=== PATIENT | male | born 1960 | race Caucasian/White ===

== ENCOUNTER → 2016-08-13 | Outpatient (CLI) | payer MEDICARE, BC ==
[~2016-08-13] MED LIST: ACTOS15 MG PO; ADVAIR HFA120 INHALA IH; AFRIN,GENASAL D15 ML BOTH NARES; ANTIVERT25 MG PO; ASPIRIN E.C.81 M1 PO; B COMPLETE1 EACH PO; BENZONATATE100 MG PO; COZAAR50 MG PO; CYANOCOBAL1000 MCG/2 IM; GLUCOPHAGE500 MG PO; IBUPROFEN800 MG PO; LANTUS 10100 UNITS/ SC; LANTUS 3 M100 UNITS/ SC; LANTUS 3 M100 UNITS1 SC; LOMOTIL,LONO1 TABLET PO; LYRICA150 MG PO; MECLIZINE HCL25 MG PO; NOVOLOG 10100 UNITS/ SC; NOVOLOG PE100 UNITS/ SC; PRAVACHOL40 MG PO; PRILOSEC40 MG PO; Prilosec PO; ST. JOSEPH ASPI81 MG PO; TRAMADOL HCL50 MG PO; Tessalon Perle PO; VENTOLIN HFA18 GM IH; WELCHOL625 MG PO
== END | disposition home or self-care (01) ==
LOC: CDC 14:30
DX: R94.31 Abnormal electrocardiogram [ECG] [EKG] (principal); K42.9 Umbilical hernia without obstruction or gangrene
CPT/HCPCS: 93000

== ENCOUNTER 2016-08-27 06:37 | Day surgery (SDC) | payer OTHER, BC ==
[~2016-08-27] VITALS: Ht 170.2 cm; Wt 114.3 kg
[~2016-08-27 06:37] MED LIST changes: +LOSARTAN POTASS50 MG PO; +METFORMIN HCL500 MG PO; +MOTRIN800 MG PO; +OMEPRAZOLE40 M1 PO; +TESSALON200 MG PO; +TRESIBA FL100 UNIT/1 SC; +ULTRAM50 MG PO
[2016-08-27 07:34] VITALS: BP 142/72
[2016-08-27 07:48] LABS: POINT-OF-CARE METER ID UU14174212
[2016-08-27] MEDS ORDERED: TRAMADOL HCL50 MG PO (09:35)
[2016-08-27 10:00] LABS: POINT-OF-CARE METER ID UU13113675; POINT-OF-CARE USER ID 515036437
[2016-08-27 11:00] VITALS: BP 124/71
[2016-08-27 12:33] VITALS: BP 127/68
== END 2016-08-27 13:45 | disposition home or self-care (01) ==
LOC: SDC 06:37
PROVIDERS: Surgery
PROC: 0WUF4JZ Supplement Abdominal Wall with Synthetic Substitute, Percutaneous Endoscopic Approach (ICD-10-PCS; principal; 2016-08-27)
DX: K42.0 Umbilical hernia with obstruction, without gangrene (principal); J45.909 Unspecified asthma, uncomplicated; I10 Essential (primary) hypertension; E11.42 Type 2 diabetes mellitus with diabetic polyneuropathy; E78.5 Hyperlipidemia, unspecified; K21.9 Gastro-esophageal reflux disease without esophagitis; E66.09 Other obesity due to excess calories; Z68.38 Body mass index [BMI] 38.0-38.9, adult; Z87.891 Personal history of nicotine dependence; Z80.0 Family history of malignant neoplasm of digestive organs; Z82.0 Family history of epilepsy and other diseases of the nervous system; Z83.3 Family history of diabetes mellitus; Z79.84 Long term (current) use of oral hypoglycemic drugs; Z88.8 Allergy status to other drugs, medicaments and biological substances
CPT/HCPCS: 82948; J0330; J0690; J1815; J1885; J2250; J2405; J2710; J3010

== ENCOUNTER 2017-02-22 10:08 | Inpatient (IN) | payer OTHER, BC ==
[~2017-02-22] VITALS: Ht 170.2 cm; Wt 105.5 kg
[2017-02-22 11:25] LABS: HEMATOCRIT 45.2 % (38.0-50.0); MCHC 33.8 G/DL (30.0-36.0); MCV 88.6 FL (86-99); MEAN PLAT.VOLUME 11.7 uM^3 (9.0-12.4); PLATELET COUNT 197 K/uL (156-360); RBC DIS.WIDTH-CV 12.1 % (11.8-14.6); RBC DIS.WIDTH-SD 38.9 % (39-53); WHITE BLOOD COUNT 10.2 K/uL (4.1-10.2)
[2017-02-22 11:37] LABS: CHLORIDE 95 mEq/L (99-109); POTASSIUM 5.3 mEq/L (3.7-5.4); SODIUM 131 mEq/L (136-147)
[2017-02-22 11:39] LABS: GLUCOSE 381 mg/dL (70-99)
[2017-02-22 11:40] LABS: ANION GAP 21 MEQ/L (2-14)
[2017-02-22 11:43] LABS: GFR ESTIMATE (CALCULATED) 39 mL/min/; UREA NITROGEN (BUN) 39 mg/dL (9-23)
[2017-02-22 13:32] LABS: LIPASE 6 U/L (1.0-51.0)
[2017-02-22 14:24] LABS: BASE EXCESS -9.2 mEq/L (-3 to +3); CARBOXY HGB 1.7 % (0-5); METHEMOGLOBIN 0.8 % (0-1.5); PO2 82 mm Hg (80-100)
[2017-02-22 14:25] LABS: BICARBONATE 16.3 mEq/L (22-26); COMMENTS - BLOOD GASES A+C+; PCO2 34 mm Hg (35-45); SITE LR; TOTAL RESP RATE 16 resp/min; pH 7.29 (7.35-7.45)
[2017-02-22 15:06] LABS: ADD MIUA? YES; BILIRUBIN NEGATIVE; BLOOD MODERATE; COLOR STRAW ((YELLOW)); GLUCOSE (STRIP) >=500; KETONES 80; LEUKOCYTES NEGATIVE; NITRITE NEGATIVE; PROTEIN (STRIP) NEGATIVE; SPECIFIC GRAVITY 1.026 (1.000-1.030); UROBILINOGEN 0.2 MG/DL (0.2-1.0)
[2017-02-22 15:10] LABS: BACTERIA NONE SEEN /HPF; EPITHELIAL CELLS NONE SEEN /HPF; MUCUS NONE SEEN /LPF; RED BLOOD CELLS 0-5 /HPF (0-5); UCUL ADDED? NO; WHITE BLOOD CELLS 0-5 /HPF (0-5)
[2017-02-22 15:55] LABS: POINT-OF-CARE METER ID UU13113800
[2017-02-22 16:27] LABS: CHLORIDE 100 mEq/L (99-109); POTASSIUM 4.8 mEq/L (3.7-5.4); SODIUM 134 mEq/L (136-147)
[2017-02-22 16:29] LABS: GLUCOSE 259 mg/dL (70-99)
[2017-02-22 16:30] LABS: ANION GAP 19 MEQ/L (2-14)
[2017-02-22 16:33] LABS: GFR ESTIMATE (CALCULATED) 48 mL/min/; UREA NITROGEN (BUN) 36 mg/dL (9-23)
[2017-02-22 17:18] LABS: POINT-OF-CARE METER ID UU14100415
[2017-02-22 17:40] LABS: Estimated Average Glucose 283 mg/dL (70-123); HEMOGLOBIN A1c (GLYCOHEMOGLOB) 11.5 % HGB (Below 5.7)
[2017-02-22 18:27] LABS: POINT-OF-CARE METER ID UU14100415
[2017-02-22] MEDS ORDERED: HUMALOG100 UNIT/2 SC (18:57)
[2017-02-22] MEDS ORDERED: INVOKANA100 MG PO (18:59)
[2017-02-22] MEDS ORDERED: ACTOS15 MG PO (18:59)
[2017-02-22 19:28] LABS: POINT-OF-CARE METER ID UU14100415
[2017-02-22 20:27] VITALS: BP 153/77
[2017-02-22 20:30] VITALS: BP 149/73
[2017-02-22 20:32] LABS: CHLORIDE 105 mEq/L (99-109); SODIUM 136 mEq/L (136-147)
[2017-02-22 20:35] LABS: ANION GAP 10 MEQ/L (2-14)
[2017-02-22 20:36] LABS: GLUCOSE 108 mg/dL (70-99)
[2017-02-22 20:37] LABS: GFR ESTIMATE (CALCULATED) 56 mL/min/
[2017-02-22 20:38] LABS: UREA NITROGEN (BUN) 32 mg/dL (9-23)
[2017-02-22 21:00] VITALS: BP 163/89
[2017-02-22 21:06] LABS: POINT-OF-CARE METER ID UU14208751
[2017-02-22 21:17] LABS: POINT-OF-CARE METER ID UU14208751
[2017-02-22 21:51] LABS: POINT-OF-CARE METER ID UU14208751
[2017-02-22 21:53] LABS: METH RESISTANT S AUREUS PCR NEGATIVE (NEGATIVE)
[2017-02-22 21:54] LABS: PROBE CHECK PASS; SPECIMEN PROCESSING CONTROL PASS
[2017-02-22 22:00] VITALS: BP 117/62
[2017-02-22 22:51] LABS: POINT-OF-CARE METER ID UU14208751
[2017-02-22 23:00] VITALS: BP 142/62
[2017-02-22 23:15] LABS: POINT-OF-CARE METER ID UU14208751
[2017-02-23] VITALS (13 sets, daily range): BP systolic 105–153; BP diastolic 55–83
[2017-02-23 00:22] LABS: POINT-OF-CARE METER ID UU14208751
[2017-02-23 00:59] LABS: CHLORIDE 104 mEq/L (99-109); POTASSIUM 3.9 mEq/L (3.7-5.4); SODIUM 137 mEq/L (136-147)
[2017-02-23 01:02] LABS: GLUCOSE 165 mg/dL (70-99)
[2017-02-23 01:03] LABS: ANION GAP 11 MEQ/L (2-14)
[2017-02-23 01:05] LABS: GFR ESTIMATE (CALCULATED) > 59 mL/min/
[2017-02-23 01:06] LABS: UREA NITROGEN (BUN) 28 mg/dL (9-23)
[2017-02-23 01:26] LABS: POINT-OF-CARE METER ID UU14208751
[2017-02-23 02:26] LABS: POINT-OF-CARE METER ID UU14208751
[2017-02-23 05:31] LABS: ANION GAP 9 MEQ/L (2-14); CHLORIDE 103 MEQ/L (99-109); POTASSIUM 3.9 MEQ/L (3.7-5.4); SAMPLE HEMOLYSIS CHECK 0; SAMPLE ICTERIC CHECK 0; SAMPLE LIPEMIA CHECK 0; SODIUM 138 MEQ/L (136-147)
[2017-02-23 05:37] LABS: GFR ESTIMATE (CALCULATED) > 59 mL/min/; GLUCOSE 161 mg/dL (70-99); UREA NITROGEN (BUN) 26 mg/dL (9-23)
[2017-02-23 06:17] LABS: EOSINOPHIL (%) 1.8 % (0-5); EOSINOPHIL COUNT 0.1 K/uL (0-0.3); HEMATOCRIT 37.3 % (38.0-50.0); IMMATURE GRANULOCYTE (%) 0.6 % (0.0-0.7); INSTRUMENT ABS NEUTROPHIL CT 4.3 K/uL; MCHC 33.8 G/DL (30.0-36.0); MCV 88.8 FL (86-99); MEAN PLAT.VOLUME 11.8 uM^3 (9.0-12.4); MONOCYTE COUNT 0.7 K/uL (0-0.8); NEUTROPHIL (%) 59.9 % (45-76); NEUTROPHIL COUNT 4.3 K/uL (1.8-6.4); PLATELET COUNT 150 K/uL (156-360); RBC DIS.WIDTH-CV 12.4 % (11.8-14.6); RBC DIS.WIDTH-SD 40.4 % (39-53); WHITE BLOOD COUNT 7.2 K/uL (4.1-10.2)
[2017-02-23 06:42] LABS: POINT-OF-CARE METER ID UU14208751
[2017-02-23 11:18] LABS: POINT-OF-CARE METER ID UU13113717
[2017-02-23 16:41] LABS: POINT-OF-CARE METER ID UU14174225
[2017-02-23 22:16] LABS: POINT-OF-CARE METER ID UU14188625
[2017-02-24 07:43] VITALS: BP 124/65
[2017-02-24 08:49] LABS: POINT-OF-CARE METER ID UU13113717
[2017-02-24 12:12] LABS: POINT-OF-CARE METER ID UU14188625
[2017-02-24 12:30] VITALS: BP 124/67
[2017-02-24 15:21] LABS: C DIFF TOXIN NEGATIVE (NEGATIVE)
[2017-02-24 16:34] LABS: PROBE CHECK PASS; SPECIMEN PROCESSING CONTROL PASS
[2017-02-24 17:29] LABS: POINT-OF-CARE METER ID UU14174225
[2017-02-24 22:19] LABS: POINT-OF-CARE METER ID UU14188625
[2017-02-25 00:11] VITALS: BP 146/62
[2017-02-25 07:51] VITALS: BP 156/89
[2017-02-25 08:11] LABS: POINT-OF-CARE METER ID UU13113717
[2017-02-25 08:49] LABS: POINT-OF-CARE METER ID UU13113717
[2017-02-25 09:02] LABS: ANION GAP 8 MEQ/L (2-14); CHLORIDE 100 MEQ/L (99-109); GFR ESTIMATE (CALCULATED) > 59 mL/min/; GLUCOSE 204 mg/dL (70-99); POTASSIUM 4.1 MEQ/L (3.7-5.4); SAMPLE HEMOLYSIS CHECK 0; SAMPLE ICTERIC CHECK 0; SAMPLE LIPEMIA CHECK 0; SODIUM 136 MEQ/L (136-147); UREA NITROGEN (BUN) 23 mg/dL (9-23)
== END 2017-02-25 11:18 | disposition home or self-care (01) | DRG 638 ==
LOC: EME 10:08 → 5SOUTH 17:34 → 4WEST 17:34 → EDOF 17:34 → ENRESERV 17:35 → 4WEST 20:24 → ENRESERV 02-23 07:36 → 4WEST 02-23 07:36 → ENRESERV 02-23 08:47 → 5SOUTH 02-23 09:49
PROVIDERS: Emergency Medicine; Hospitalist; Internal Medicine; Physician Assistant Medical; Surgery
DX: E11.10 Type 2 diabetes mellitus with ketoacidosis without coma (principal); N17.9 Acute kidney failure, unspecified; E86.0 Dehydration; K59.1 Functional diarrhea; E11.42 Type 2 diabetes mellitus with diabetic polyneuropathy; E78.5 Hyperlipidemia, unspecified; I10 Essential (primary) hypertension; J45.909 Unspecified asthma, uncomplicated; R10.9 Unspecified abdominal pain; E66.9 Obesity, unspecified; K21.9 Gastro-esophageal reflux disease without esophagitis; Z68.36 Body mass index [BMI] 36.0-36.9, adult; Z79.4 Long term (current) use of insulin; Z87.891 Personal history of nicotine dependence
CPT/HCPCS: 36600; 71010; 80048; 80048 91; 81003; 82803; 82948; 83036; 83690; 84100; 85025; 85027; 87493; 87641; 90686; 94760; 94799; 99202; 99281; 99285; J1650; J1815; J2270; J2405; J7030; J7050